=== PATIENT | male | born 1995 | race Caucasian/White ===

== ENCOUNTER 2018-11-16 11:43 | Emergency (ER) | payer BC ==
--- NOTE | 2018-11-16 12:47 | EDPHY ---
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 He feels foreign body sensation at the tip of his nose. His tetanus is up-to-date. PRIMARY CARE PROVIDER: REVIEW OF SYSTEMS: 10 systems reviewed and are negative with exception of illness mentioned in the history of present illness PHYSICAL EXAM (Prior to examination, patient consented to physical exam, hands were washed and my usual and customary physical exam procedures followed) 1) GENERAL: Well-developed, well-nourished, alert and oriented. Appears to be in no acute distress. 2) HEAD: Normocephalic 3) HEENT: sclera anicteric 4) LUNGS: Breathing comfortably. 5) SKIN: On the tip of the patient's nose he has a puncture wound and embedded piece of wood. The wound is not through and through in the bilateral nostrils are clear. Smoking Status: Never smoked Constitutional: Initial Vital Signs Temperature (C) 36.3 C 11/16/18 11:52 Heart Rate 84 11/16/18 11:52 Respiratory Rate 16 11/16/18 11:52 Blood Pressure 148/87 H 11/16/18 11:52 O2 Sat (%) 97 11/16/18 11:52 O2 Delivery Mode Room Air Allergies/Adverse Reactions: No Known Allergies Allergy (Unverified 11/16/18 11:56) Home Medications: Medication Instructions Recorded Adderall 10 MG (*) 11/16/18 Cephalexin [Keflex] 500 mg PO TID 5 Days cap 11/16/18 MDM/Departure - MDM Procedures: Procedure: Foreign body removal Indication: Foreign body at tip of nose Indications risks benefits discussed with patient. The tip of the nose was anesthetized 1% lidocaine without epinephrine. I was able to manually remove the foreign body. Areas and copiously irrigated re-examined by myself. There is a remaining 4 mm laceration. ED Course/Re-evaluation: The patient I had a lengthy discussion regarding the puncture wound to the tip of nose. I am starting him on topical and oral prophylactic antibiotics. The he has been informed that scarring will occur. I have recommended not closing the wound primarily due to increased risk of infection. We discussed delayed primary closure. Today is Wednesday. I recommended follow-up with Plastic surgery on-call this Wednesday. - Depart Disposition: Home, Routine, Self-Care Clinical Impression: Puncture wound of nose Qualifiers: Encounter type: initial encounter Qualified Code(s): S01.23XA - Puncture wound without foreign body of nose, initial encounter Condition: Good Instructions: Soft Tissue Foreign Body (ED) Additional Instructions: Return to the ER if you develop redness, swelling, discharge, warmth to the wound, or any other symptoms that concern you. Prescriptions: Cephalexin [Keflex] 500 mg PO TID 5 Days cap Referrals: Kyle Silva MD [Medical Doctor] - 11/18/18
[2018-11-16 13:22] VITALS: BP 156/86
== END 2018-11-16 13:22 | disposition home or self-care (01) ==
DX: S01.24XA Puncture wound with foreign body of nose, initial encounter (principal); W20.8XXA Other cause of strike by thrown, projected or falling object, initial encounter; Y99.0 Civilian activity done for income or pay; Y92.828 Other wilderness area as the place of occurrence of the external cause